=== PATIENT | male | born 1990 | race Two or more races ===

== ENCOUNTER 2016-10-13 10:18 | Emergency (ER) | payer SELFPAY ==
[~2016-10-13] VITALS: Ht 182.9 cm; Wt 73.5 kg
[2016-10-13 10:34] VITALS: BP 127/76
[2016-10-13] MEDS ORDERED: ERYT1OIN6 OP (11:33)
--- NOTE | 2016-10-13 11:33 | PHYS DOC ---
Past Medical History Past Medical History: No Pertinent History Past Surgical History: No Surgical History Additional Information: Pt states this is day 8 since stopping smoking Alcohol Use: Occasionally Drug Use: None Adult General Chief Complaint Chief Complaint: EYE PROBLEMS HPI HPI Patient is a 26 year old male with no significant medical history who presents today complaining of right eye infection. Patient states a week ago he was working on concrete and a piece of metal went into his right eye. He states on Wednesday he removed the piece of metal. He states his noticed he has had increased redness to the right eye and believes it's infected he is also complaining of some intermittent pain to the right eye. Patient denies any vision loss. He states he would like to be treated for eye infection. He states he already remove the piece of metal. 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 Review of Systems Review of Systems Constitutional: Denies fever or chills [] Eyes: Denies change in visual acuity, redness, or eye pain [] HENT: Right eye redness and pain. Musculoskeletal: Denies back pain or joint pain [] Integument: Denies rash or skin lesions [] Neurologic: Denies headache, focal weakness or sensory changes [] Endocrine: Denies polyuria or polydipsia [] Allergies Allergies Allergies Coded Allergies Type Severity Reaction Last Updated Verified No Known Drug Allergies 10/13/16 No Physical Exam Physical Exam Constitutional: Well developed, well nourished, no acute distress, non-toxic appearance. [] HENT: Normocephalic, atraumatic, bilateral external ears normal, oropharynx moist, no oral exudates, nose normal. [] Eyes: PERRLA, EOMI, right conjunctiva is mildly injected, no drainage. Skin: Warm, dry, no erythema, no rash. [] Back: No tenderness, no CVA tenderness. [] Extremities: No tenderness, no cyanosis, no clubbing, ROM intact, no edema. [] Neurologic: Alert and oriented X 3, normal motor function, normal sensory function, no focal deficits noted. [] Psychologic: Affect normal, judgement normal, mood normal. [] Current Patient Data Vital Signs Vital Signs Date Time Temp Pulse Resp B/P (MAP) Pulse Ox O2 Delivery O2 Flow Rate FiO2 10/13/16 10:34 98.3 67 16 99 Room Air 98.3 EKG EKG [] Radiology/Procedures Radiology/Procedures [] Course & Med Decision Making Course & Med Decision Making Pertinent Labs and Imaging studies reviewed. (See chart for details) This is a 26-year-old male patient who presents to the ED complaining of right eye redness and possible infection after getting a piece of metal in the eye for week ago. He did remove the piece of metal from the right eyebrow himself. He is requesting antibiotics to clear the infection. He is declining eye exam. He was given prescription for erythromycin. Provided an proced tech requested follow-up in the course of next week. He was provided return precautions and discharged in stable condition. Dragon Disclaimer Dragon Disclaimer This electronic medical record was generated, in whole or in part, using a voice recognition dictation system. Departure Departure Impression: Primary Impression: Acute bacterial conjunctivitis of right eye Additional Impression: Foreign body of right eye Disposition: 01 HOME, SELF-CARE Condition: STABLE Referrals: NO PCP (PCP) ELIEZER CALDERÓN MD Follow-up in one to 2 weeks Patient Instructions: Bacterial Conjunctivitis, Eye - Corneal Foreign Body Additional Instructions: You were seen for right eye infection after a piece of metal got into the eye. You were discharged with medicine to clear the infection. We highly recommend you follow-up with the provided proced tech in one week. Keep the eye clean. Scripts Erythromycin Base (Erythromycin) 1 Gm Oint...g. 1 APPLIC OP Q4HRS W/A, #1 MISC Prov: CHRISGABRIELE BYERS BHARAT 10/13/16 Problem Qualifiers Additional Impression: Foreign body of right eye Encounter type: initial encounter Qualified Codes: T15.91XA - Foreign body on external eye, part unspecified, right eye, initial encounter CHRISGABRIELE BYERS [employer] OPERATOR Oct 13, 2016 11:33
== END 2016-10-13 11:45 | disposition home or self-care (01) ==
LOC: ER 10:18
DX: T15.91XA Foreign body on external eye, part unspecified, right eye, initial encounter (principal); H10.9 Unspecified conjunctivitis; W45.8XXA Other foreign body or object entering through skin, initial encounter; Y93.89 Activity, other specified; Y99.8 Other external cause status; Y92.89 Other specified places as the place of occurrence of the external cause
CPT/HCPCS: 99283